=== PATIENT | female | born 1960 | race African-American/Black ===

== ENCOUNTER 2018-01-07 03:37 | Emergency (ER) | payer SELFPAY ==
[~2018-01-07] VITALS: Ht 170.2 cm; Wt 88.5 kg
[2018-01-07] MEDS ORDERED: HYDROCODONE/ACETAMINOPHEN 5/325MG TABLET PO ONE (06:30)
[2018-01-07 08:30] VITALS: BP 131/76
== END 2018-01-07 09:04 | disposition home or self-care (01) ==
LOC: ER 06:43
DX: R22.0 Localized swelling, mass and lump, head (principal); F17.200 Nicotine dependence, unspecified, uncomplicated
CPT/HCPCS: 70486; 99284

== ENCOUNTER 2019-11-25 08:28 | Emergency (ER) | payer MEDICAID ==
[~2019-11-25] VITALS: Ht 170.2 cm; Wt 85.0 kg
[2019-11-25] MEDS ORDERED: IBUPROFEN 600MG TABLET PO ONE (11:00)
[2019-11-25 11:15] VITALS: BP 129/62
== END 2019-11-25 11:34 | disposition home or self-care (01) ==
LOC: ER 09:30
DX: H53.8 Other visual disturbances (principal); R51 Headache; F32.9 Major depressive disorder, single episode, unspecified
CPT/HCPCS: 82962; 99282